=== PATIENT | female | born 2005 | race Caucasian/White ===

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

== ENCOUNTER 2024-12-02 13:10 | Emergency (ER) | payer OTHER, SELFPAY ==
--- NOTE | ~2024-12-02 | US_ITS ---
EXAMINATION: US OB <=14 wk fetus w TV DATE: 12/02/2024 15:29 CDT INDICATION: Left-sided cramping with a positive test COMPARISON: 06/02/2024 TECHNIQUE: Real-time transabdominal obstetric ultrasound. FINDINGS: 1 para 0 Estimated date of delivery by last menstrual period is 07/10/2025 The uterus measures 10.2 x 6.7 x 7.2 cm. A gestational sac is identified within the fundus of the uterus. A pole is identified, with a crown-rump length that measures 2.1 cm, corresponding to an approx imate gestational age of 8 weeks and 5 days. cardiac activity is identified at a rate of 181 bpm. The right ovary 3.1 x 1.7 x 1.9 cm. Within the right ovary is a 16 mm focus of mixed echogenicity which a corpus luteal cyst is suspected . Despite prolonged interrogation, the left ovary was not visualized. The cervix measures 4.4 cm in length Estimated date of delivery by ultrasound is 07/09/2025 IMPRESSION: Single intrauterine gestation with an approximate gestational age of 8 weeks and 5 days, with c ardiac activity identified. Right-sided corpus luteal cyst Despite prolonged interrogation, the left ovary was not visualized. Reviewed, dictated and finalized at location A. IMPRESSION: Single intrauterine gestation with an approximate gestational age of 8 weeks an d 5 days, with cardiac activity identified. Right-sided corpus luteal cyst Despite prolonged interrogation, the left ovary was not visualized.
[2024-12-02 13:19] VITALS: BP 137/82; PULSE 70; RESP 20; TEMP 36.8; O2SAT 100
--- NOTE | 2024-12-02 14:50 | PC.NURSE ---
Pt reported she was very nervous for blood work because she has not had labs or an IV since she was a baby. RN thoroughly explained procedure and was trying to distract patient with conversation. While RN starting IV, pt started hyperventilating trying to talk herself down and had near-syncopal episode. Pt assisted to lying down position on stretcher. RN unable to obtain labs due to this event. Pt did not lose consciousness but stated that the room was getting foggy and she appeared to be unable to hold herself up straight, but quickly returned to baseline after lying down. After a few minutes, pt sat back up, was talking with s/o, RN put tourniquet on pt to attempt labs again. Pt then had additional pre-syncopal event with just applying the tourniquet (no poke). Pt then had episode of vomiting as well. Pt laid down again. Returned back to baseline. RN told pt we would take a break from the labs, pt went to to provide urine sample, ambulated steadily independently, no dizziness. When RN was about to attempt labs once again while patient lying down on stretcher, US arrived at room to take her for imaging. Provider made aware of events and delay of labs.
[2024-12-02 14:53] LABS: Add Urine Microscopic? NO; Appearance Urine Clear (Clear); Bilirubin Urine Negative (Negative); Blood Urine Negative (Negative); Color Urine Yellow (Yellow); Glucose Urine UA Negative (Negative); Ketones Urine Negative (Negative); Leukocyte Esterase Ur Negative LEU/UL (Negative); Nitrate Urine Negative (Negative); Protein Urine Negative (Negative); Specific Grav Ur 1.007 (1.001-1.035); Urobilinogen Urine 0.2 mg/dL (<2.0)
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
[2024-12-02 16:18] VITALS: BP 119/75; PULSE 68; RESP 16; O2SAT 100
== END 2024-12-02 16:33 | disposition home or self-care (01) ==
PROVIDERS: Emergency Provider Physician Assistant; PCP Pediatrics
DX: O26.891 Other specified pregnancy related conditions, first trimester (principal); R10.31 Right lower quadrant pain; R10.32 Left lower quadrant pain; Z3A.08 8 weeks gestation of pregnancy
CPT/HCPCS: 76801; 76817; 81003; 99284